=== PATIENT | female | born 1990 | race Caucasian/White ===

== ENCOUNTER 2017-01-25 12:38 | Emergency (ER) | payer OTHER ==
[2017-01-25 12:45] VITALS: TEMP 97.9
--- NOTE | 2017-01-25 13:14 | EDPHY ---
H & P Stated Complaint: opened car door into forehead on monday/no loc/seenat [facility]/now dizzy/nausea Time Seen by Provider: 01/25/17 13:19 HPI/ROS: CHIEF COMPLAINT: Headache HISTORY OF PRESENT ILLNESS: This patient is a 26-year-old female with a history of migraines who presents to the Emergency Department complaining of headache and associated photophobia and nausea secondary to a closed head injury two days prior to arrival. On Monday, she opened a car door, accidentally hitting her forehead with the door. She began to experience a moderate headache localized across her forehead immediately following the injury. She was seen at [facility] yesterday where her wound (small forehead laceration) was treated and she was given concussion precautions. She presents today because her headache has worsened despite alternating Tylenol and Ibuprofen as instructed ( last dose of Ibuprofen at 0600 today). She reports brief paresthesias bilaterally to her feet that have since subsided. She denies vomiting but has had nausea, focal weakness, or vision changes. She states that her headache is different from typical migraines. REVIEW OF SYSTEMS: A ten point review of systems was performed and is negative with the exception of the items mentioned in the HPI. Source: Patient Exam Limitations: No limitations - Personal History LMP (Females 10-55): IUD In Place Current Tetanus/Diphtheria Vaccine: Yes - Medical/Surgical History PMH: 1. Migraines 2. ADHD 3. 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 - Physical Exam Exam: General Appearance: Alert. Vital signs reviewed. BP 92/61. 122/75 at DC. Head: Normocephalic atraumatic. There is a small horizontally oriented mid forehead laceration that has been Steri-Stripped. It measures 1/3 cm. Eyes: Pupils equal and round, no conjunctival injection, no discharge. EOMI. Anicteric. ENT, Mouth: Mucous membranes are moist, no oropharyngeal erythema or edema. Dentition intact. Neck: No lymphadenopathy, supple. Nontender to palpation over the cervical spine. No paraspinous muscle tenderness or spasm. No pain with active range of motion of her neck. Respiratory: Lungs are clear to auscultation; no wheezes, rales, or rhonchi. Cardiovascular: Regular rate and rhythm; no murmur, rub, or gallop. Gastrointestinal: Abdomen is soft and nontender, no masses or organomegaly, bowel sounds normal. Skin: Warm and dry, no rashes on exposed skin, normal color. Back: Nontender to palpation over the thoracolumbar spine. No CVAT. Extremities: No lower extremity edema, no calf tenderness or swelling. Neurological: Alert and oriented. Moving all four extremities easily and equally. Slight decrease in light touch in V1/V2 on the right. Strength is 5 over 5 bilaterally with testing of all major motor groups. Sensation is intact to light touch over all 4 extremities. Deep tendon reflexes are 3+ in the biceps and 4+ knees bilaterally, slightly brisker on right than left, with two beats of clonus on each side. [id number] is performed accurately. Psychiatric: Normal affect. Constitutional: Initial Vital Signs Temperature (C) 36.6 C 01/25/17 12:42 Heart Rate 60 01/25/17 12:42 Respiratory Rate 20 01/25/17 12:42 Blood Pressure 92/61 L 01/25/17 12:42 O2 Sat (%) 99 01/25/17 12:42 O2 Delivery Mode Room Air Allergies/Adverse Reactions: No Known Allergies Allergy (Unverified 01/25/17 12:41) Home Medications: Medication Instructions Recorded Maxalt 01/25/17 Prozac 20 MG (*) 01/25/17 Xanax 01/25/17 Medical Decision Making - Diagnostics Imaging Results: Head CT reviewed by me in PACs. No acute findings. Imaging: Discussed imaging studies w/ auto body repair estimator Radiologist ED Course/Re-evaluation: This 26-year-old female with history of migraines presents with a headache localized across her forehead which she attributes to head injury on Monday, 2 days ago. to her frontal scalp. She reports photophobia and nausea that has not improved. Her neurological exam is largely benign. Her reflexes are brisk, which may be at baseline for her. She has mild decreased sensation to light touch in V1/V2 on the right. Head CT ordered given the persistence and worsening of her complaints. She clearly states that this headache is not a migraine and that it has been progressively worsening since she sustained blunt trauma to her head. She is agreeable to this. 650mg PO Tylenol and 4mg PO Zofran administered for pain and nausea. 1359: Imaging results reported to me by Dr. Hernández, radiology, and are negative for acute process. I discussed these results with the patient. Following administration of Tylenol and Zofran, the patient reports feeling better. She will be given Zofran instructions for nausea, concussions instructions, and return to the ED precautions. She expresses agreement to this plan and will be discharged home in good condition. Differential Diagnosis: I considered a differential diagnosis that includes but is not limited to skull fracture, intracranial hemorrhage, concussion, and migraine. I do not suspect infection such as meningitis. - Data Points Medications Given: Discontinued Medications Acetaminophen (Tylenol) 650 mg PO EDNOW ONE Stop: 01/25/17 13:31 Last Admin: 01/25/17 13:33 Dose: 650 mg Ondansetron HCl (Zofran Odt) 4 mg PO EDNOW ONE Stop: 01/25/17 13:31 Last Admin: 01/25/17 13:33 Dose: 4 mg Departure - Departure Disposition: Home, Routine, Self-Care Clinical Impression: Post concussion syndrome Condition: Good Instructions: Post Concussion Syndrome (ED) Additional Instructions: 1. Rest for at least one week or until your symptoms subside. 2. Continue to alternate Ibuprofen and Tylenol every 4-6 hours as needed for pain. Continue to take Zofran as prescribed for nausea and vomiting. 3. Follow-up with a neurologist when you return home for reevaluation if your symptoms do not improve. 4. Return to the Emergency Department with severe uncontrollable headache or vomiting, one-sided numbness or weakness, difficulty speaking or walking, or for other serious concerns. Referrals: Alf Day DO [Medical Doctor] - As per Instructions Physician Review and Approval Statement: 01/25/17 13:14 Portions of this note were transcribed by the medical care evaluation specialist. I, Dr. Roz Andrew, personally performed the history, physical exam, and medical decision- making; and confirmed the accuracy of the information in the transcribed note.
[2017-01-25] MEDS ORDERED: ONDANSETRON DISINTEGRATING 4 MG TAB PO ONE (13:30)
[2017-01-25] MEDS ORDERED: ACETAMINOPHEN 325 MG TAB PO ONE (13:30)
[2017-01-25 14:22] VITALS: BP 122/75; PULSE 72; RESP 16; O2SAT 98
== END 2017-01-25 14:45 | disposition home or self-care (01) ==
DX: S09.90XA Unspecified injury of head, initial encounter (principal); F07.81 Postconcussional syndrome; W22.8XXA Striking against or struck by other objects, initial encounter